=== PATIENT | male | born 1945 | race Caucasian/White ===

== ENCOUNTER 2018-02-16 07:34 | Day surgery (SDC) | payer OTHER, MEDICARE ==
[2018-02-12 10:55] VITALS: BMI 31.1
[2018-02-16] MEDS ORDERED: PROPOFOL 20 ML ONE ×2 (07:42)
[2018-02-16] MEDS ORDERED: LIDOCAINE HCL/PF 2% SDV 5ML VIAL ONE (08:06)
[2018-02-16 08:53] VITALS: TEMP 97.9
[2018-02-16 09:32] VITALS: BP 137/69; PULSE 50
--- NOTE | 2018-02-24 09:36 | PATH ---
Surgical Pathology Report Patient Name: RICHARD MIRANDA [facility]. Rec. #: [id number] /Age/Gender: 1945 (Age: 72) / M Account: [id number] Location: Taken: 02/16/2018 Received: 02/16/2018 Reported: 02/18/2018 Physicians: Justen Askew M.D. Specimen(s) Received A: BX DUODENUM B: BX ANTRUM Clinical History Peptic ulcer disease Postoperative diagnosis: Rule out celiac disease, gastritis, gastric erosion Final Diagnosis A. DUODENUM, BIOPSY: MILD CHRONIC DUODENITIS. Note: Features suggestive of celiac disease are not identified in this biopsy. B. ANTRUM, BIOPSY: MILD CHRONIC GASTRITIS. IMMUNOSTAIN IS NEGATIVE FOR H. PYLORI ORGANISMS. Electronically Signed Kimberli Dahl M.D. Gross Description A. Received in formalin, labeled "duodenum" are 2 felix, irregular portions of soft tissue averaging 0.3 cm. in greatest dimension. The specimens are submitted in toto in one cassette. B. Received in formalin, labeled "antrum" are 2 felix, irregular portions of soft tissue measuring 0.4 and 0.6 cm. in greatest dimension. The specimens are submitted in toto in one cassette. /02/16/2018 saudi02/16/2018
== END 2018-02-16 09:15 | disposition home or self-care (01) ==
LOC: FASU-ENDO 07:34
PROVIDERS: ATTEND Internal Medicine Gastroenterology
PROC: 0DB98ZX Excision of Duodenum, Via Natural or Artificial Opening Endoscopic, Diagnostic (ICD-10-PCS; principal; 2018-02-16 08:25)
PROC: 0DB68ZX Excision of Stomach, Via Natural or Artificial Opening Endoscopic, Diagnostic (ICD-10-PCS; 2018-02-16 08:25)
DX: K29.80 Duodenitis without bleeding (principal); K29.50 Unspecified chronic gastritis without bleeding; R10.13 Epigastric pain
CPT/HCPCS: 88305-TC; 88342-TC